=== PATIENT | female | born 1935 | race Caucasian/White ===

== ENCOUNTER 2016-12-05 11:23 | Day surgery (SDC) | payer MEDICARE, OTHER, MEDICAID | END 2016-12-05 15:16 | disposition home or self-care (01) | LOC: RAD.S 11:23 → EDSTATUS 13:00 → RAD.S 13:00 | PROC: 0PU43JZ Supplement Thoracic Vertebra with Synthetic Substitute, Percutaneous Approach (ICD-10-PCS; principal; 2016-12-05) | PROC: 0PS43ZZ Reposition Thoracic Vertebra, Percutaneous Approach (ICD-10-PCS; principal; 2016-12-05) | DX: M48.54XA Collapsed vertebra, not elsewhere classified, thoracic region, initial encounter for fracture (principal); M48.56XA Collapsed vertebra, not elsewhere classified, lumbar region, initial encounter for fracture; Z88.8 Allergy status to other drugs, medicaments and biological substances ==

== ENCOUNTER 2016-12-06 08:25 | Day surgery (SDC) | payer MEDICARE, OTHER, MEDICAID ==
[~2016-12-06] VITALS: Ht 170.2 cm; Wt 47.9 kg
== END 2016-12-06 11:53 | disposition home or self-care (01) ==
LOC: RAD.S 08:25
PROC: 0PU43JZ Supplement Thoracic Vertebra with Synthetic Substitute, Percutaneous Approach (ICD-10-PCS; principal; 2016-12-06)
PROC: 0PS43ZZ Reposition Thoracic Vertebra, Percutaneous Approach (ICD-10-PCS; principal; 2016-12-06)
DX: M48.54XA Collapsed vertebra, not elsewhere classified, thoracic region, initial encounter for fracture (principal); Z79.899 Other long term (current) drug therapy; Z88.8 Allergy status to other drugs, medicaments and biological substances

== ENCOUNTER 2016-12-09 08:25 | Day surgery (SDC) | payer MEDICARE, OTHER, MEDICAID ==
[~2016-12-09] VITALS: Ht 170.2 cm; Wt 47.5 kg
== END 2016-12-09 12:41 | disposition home or self-care (01) ==
LOC: RAD.S 08:25 → EDSTATUS 10:00 → RAD.S 12:41
PROC: 0QU03JZ Supplement Lumbar Vertebra with Synthetic Substitute, Percutaneous Approach (ICD-10-PCS; principal; 2016-12-09)
PROC: 0QS03ZZ Reposition Lumbar Vertebra, Percutaneous Approach (ICD-10-PCS; principal; 2016-12-09)
DX: M48.56XA Collapsed vertebra, not elsewhere classified, lumbar region, initial encounter for fracture (principal); Z79.899 Other long term (current) drug therapy; Z88.8 Allergy status to other drugs, medicaments and biological substances